=== PATIENT | male | born 1945 | race African-American/Black ===

== ENCOUNTER 2017-01-09 09:30 | Outpatient (CLI) | payer MEDICARE, OTHER ==
[2017-01-09 10:26] LABS: ALT (SGPT) 40 U/L (0-55); AST (SGOT) 33 U/L (5-34); Albumin 3.9 g/dL (3.4-4.8); Alkaline Phosphatase 175 U/L (40-150); Anion Gap 15 mmol/L (10-20); BUN (Urea Nitrogen) 27 mg/dL (8.4-25.7); Bilirubin, Total 0.4 mg/dL (0.2-1.2); Calc. Creatinine Clearance 0 mL/min (70-130); Calcium 10.1 mg/dL (7.8-10.44); Carbon Dioxide 24 mmol/L (23-31); Chloride 105 mmol/L (98-107); Estimated GFR-MDRD 52; Globulin 3.9 g/dL (2.4-3.5); Glucose 92 mg/dL (83-110); Potassium 4.2 mmol/L (3.5-5.1); Protein, Total 7.8 g/dL (5.8-8.1); Sodium 140 mmol/L (136-145)
[2017-01-09 11:07] LABS: Band 2 % (5-11); Eosinophils 4 % (0-10); Hemoglobin 15.4 g/dL (14.0-18.0); Lymphocytes 22 % (21-51); MDiff Complete? YES; Mean Corpuscular HGB CONC 33.4 g/dL (32.0-36.0); Mean Corpuscular Hemoglobin 29.1 pg (27.0-31.0); Mean Corpuscular Volume 87.1 fL (80.0-94.0); Mean Platelet Volume 6.9 fL (7.4-10.4); Monocytes 13 % (0-10); Neutrophil 58 % (42-75); Platelet Count 308 thou/uL (130-400); RBC Distribution Width 11.9 % (11.5-14.5); Red Blood Cell (RBC) Count 5.31 mill/uL (4.70-6.10); White Blood Cell (WBC) Count 6.1 thou/uL (4.8-10.8)
[2017-01-09 11:08] LABS: PLT Morphology Comment Appears Adequate; RBC Morphology Normal
--- NOTE | 2017-01-09 11:21 | RAD ---
LUMBAR SPINE SERIES THREE VIEWS: History: Back pain for one month. FINDINGS: The vertebral bodies are normal in height. There is fairly pronounced disc narrowing at L5-S1. Mil d disc narrowing at L4-5. Degenerative facet changes are present. Pedicles are intact. No spondyl olisthesis. IMPRESSION: 1. Moderate arthritic changes of the lower lumbar spine. 2. Atherosclerosis. POS: OFF
--- NOTE | 2017-01-09 11:22 | RAD ---
TWO VIEW RIGHT HIP: Indication: Pain. FINDINGS: No fracture or dislocation. There is mild osteoarthritis. IMPRESSION: No acute fracture. POS: [facility]
--- NOTE | 2017-01-09 11:22 | RAD ---
LEFT HIP TWO VIEWS: History: Pain for one month. FINDINGS: The joint space is well preserved. There are no signs of any arthritic change. Femoral head mainta ins a normal spherical shape. IMPRESSION: Essentially unremarkable left hip. POS: OFF
== END 2017-01-09 09:31 | disposition home or self-care (01) ==
LOC: MADLABBHPM 09:30
PROVIDERS: ATTEND Family Medicine
DX: R00.2 Palpitations (principal); R07.9 Chest pain, unspecified; M25.559 Pain in unspecified hip; M54.9 Dorsalgia, unspecified; I10 Essential (primary) hypertension
CPT/HCPCS: 36415; 72100; 80053; 84443; 85007; 85027; 85652; 93005; 93010

== ENCOUNTER 2017-03-01 10:10 | Inpatient (IN) | payer MEDICARE, OTHER ==
[2017-03-01 10:55] VITALS: BMI 22.1
[2017-03-01] MEDS ORDERED: Acetaminophen 325 MG TAB PO PRN (14:03)
[2017-03-01] MEDS ORDERED: Ondansetron ODT 4 MG TAB PO PRN (14:03)
[2017-03-01] MEDS ORDERED: HYDROcodone/Acetaminophen 10/325 mg Tablet PO PRN ×2 (14:06)
[2017-03-01] MEDS ORDERED: Mag-Al Plus 1200 MG/1200 MG/120 MG/30 ML UDCUP PO PRN (14:07)
[2017-03-01] MEDS: Docusate 100 MG CAP PO SCH (20:30)
[2017-03-01] MEDS: Acetaminophen/Codeine 30-300mg Tablet PO SCH (20:31)
--- NOTE | 2017-03-02 01:27 | HP ---
DATE OF ADMISSION: 03/01/2017 ADMITTING PHYSICIAN: Sabino Torres M.D. PRIMARY CARE PHYSICIAN: Sabino Torres M.D. REASON FOR ADMISSION: For skilled rehabilitation at [facility] swing bed, status post laminectomy to L4-L5 and T10-T11. HISTORY OF PRESENT ILLNESS: Mr. Lagos is a 73-year-old male with a past medical history of hypertension who presented to his primary care physician due to lower back pain and severely worsening gait dysfunction. The patient had MRIs done which showed L spine L4-L5 severe stenosis and severe stenosis to T10-T11. The patient was seen by neurosurgeon, Dr. Spencer, and he subsequently was admitted for laminectomy due to the worsening of his gait. The patient had a surgery performed on 02/26/2017 and the procedure did go well. Status post surgery, the patient progressively improved and was subsequently transferred to [facility] in [place] to continue his skilled rehabilitation prior to discharge back to his home. When I saw the patient today, he was happy to be in facility, denied any nausea , vomiting, chest pain, or constipation. He states he has not had a bowel movement since surgery, but he has been passing gas. He denies any abdominal pain, no fevers. He complains of mild back pain, but states pain is controlled with current pain medication. PAST MEDICAL HISTORY: Hypertension and CKD, stage 3. PAST SURGICAL HISTORY: Cholecystectomy. ALLERGIES: No known drug allergies. CODE STATUS: FULL CODE. SOCIAL HISTORY: He denies any tobacco use, alcohol use, or illicit drug use. The patient lives in his home in [place] by himself. MEDICATIONS: The patient takes lisinopril/hydrochlorothiazide 20/25 and clonidine 0.1 daily. REVIEW OF SYSTEMS: General: The patient denies any fevers or chills. The patient denies any nausea, vomiting. HEENT: No vision changes, no hearing, no dysphagia. Chest: No chest pain, shortness of breath, palpitation, or dizziness. Respiratory: Denies any cough, shortness of breath or wheezing. Abdomen: Denies any abdominal pain, constipation, or nausea. States he has not had a bowel movement in 3 days. Genitourinary: Denies dysuria, hematuria. Skin: Denies any easy bruising. Musculoskeletal: Complains of some soreness to his back and gait instability. Neurologic: Denies memory loss, hallucination or delusions. PHYSICAL EXAMINATION: VITAL SIGNS: Temperature 97.2, pulse 73, respirations 18, O2 on room air 96%, and blood pressure 129/68. GENERAL APPEARANCE: Alert, awake, oriented x3, healthy appearing male, pleasant, and in no apparent distress, lying comfortably in bed. HEENT: Normocephalic, atraumatic. PERRL. Nonicteric sclerae. Oral mucous membranes moist. NECK: Supple. No JVD. CHEST: Clear to auscultation bilaterally. CARDIAC: S1, S2, no murmurs, rubs, or gallops. No JVD, no carotid bruit. ABDOMEN: Positive bowel sounds, soft, nontender, nondistended. BACK: Mid thoracic area with 2 incision sites clean, clear, dry and intact dressing. No signs of erythema or infection. NEUROLOGIC: Gait is slow. Cranial nerves grossly intact. Sensation grossly intact. ASSESSMENT: 1. Status post laminectomy. 2. Lumbar laminectomy L4-L5, thoracic laminectomy T10-T11. 3. Hypertension. 4. Gait instability. 5. Chronic kidney disease, stage 3. 6. Constipation. PLAN: The patient is being admitted to [facility] swing bed for rehabilitation and gait strengthening. We will consult physical therapy for strengthening in order to gain modified independence with gait and occupational therapy to help with activities of daily living prior to returning to his home. We will change dressings daily and the patient to follow up with neurosurgeon in 2 weeks. We will resume home medications. We will monitor blood pressure closely. We will manage pain with Tylenol No. 3 and [place] as needed. For constipation we will place the patient on Colace b.i.d. and p.r.n. stool softeners. We will monitor the patient closely and any medical comorbidities that may interfere with his rehabilitation process. We will place the patient on GI and DVT prophylaxis with Protonix and compression stockings. EXTENDED LENGTH OF STAY: 2-3 weeks. DISPOSITION: Home. CODE STATUS: FULL CODE. MTDD
[2017-03-02] MEDS: Acetaminophen/Codeine 30-300mg Tablet PO SCH ×2 (08:56→20:35)
[2017-03-02] MEDS: cloNIDine HCl 0.1 MG TAB PO SCH (08:58)
[2017-03-02] MEDS: Hydrochlorothiazide 25 MG TAB PO SCH (08:59)
[2017-03-02] MEDS: Lisinopril 10 MG TAB PO SCH (08:59)
[2017-03-02] MEDS: Docusate 100 MG CAP PO SCH ×2 (08:59→20:36)
[2017-03-03] MEDS: Lisinopril 10 MG TAB PO SCH (07:54)
[2017-03-03] MEDS: Hydrochlorothiazide 25 MG TAB PO SCH (07:54)
[2017-03-03] MEDS: Acetaminophen/Codeine 30-300mg Tablet PO SCH ×2 (07:55→20:53)
[2017-03-03] MEDS: Docusate 100 MG CAP PO SCH ×2 (07:55→20:53)
[2017-03-03] MEDS: cloNIDine HCl 0.1 MG TAB PO SCH (07:57)
[2017-03-04] MEDS: Acetaminophen/Codeine 30-300mg Tablet PO SCH ×2 (09:38→20:23)
[2017-03-04] MEDS: Lisinopril 10 MG TAB PO SCH (09:40)
[2017-03-04] MEDS: cloNIDine HCl 0.1 MG TAB PO SCH (09:40)
[2017-03-04] MEDS: Hydrochlorothiazide 25 MG TAB PO SCH (09:40)
[2017-03-04] MEDS: Docusate 100 MG CAP PO SCH ×2 (09:40→20:23)
[2017-03-05] MEDS: Acetaminophen/Codeine 30-300mg Tablet PO SCH ×2 (09:16→20:14)
[2017-03-05] MEDS: Docusate 100 MG CAP PO SCH ×2 (09:17→20:15)
[2017-03-05] MEDS: Lisinopril 10 MG TAB PO SCH (09:17)
[2017-03-05] MEDS: Hydrochlorothiazide 25 MG TAB PO SCH (09:17)
[2017-03-05] MEDS: cloNIDine HCl 0.1 MG TAB PO SCH (09:17)
[2017-03-06] MEDS: Acetaminophen/Codeine 30-300mg Tablet PO SCH ×2 (07:10→21:11)
[2017-03-06] MEDS: Docusate 100 MG CAP PO SCH ×2 (08:11→21:11)
[2017-03-06] MEDS: Hydrochlorothiazide 25 MG TAB PO SCH (08:11)
[2017-03-06] MEDS: cloNIDine HCl 0.1 MG TAB PO SCH (08:11)
[2017-03-06] MEDS: Lisinopril 10 MG TAB PO SCH (08:11)
[2017-03-07 07:59] VITALS: BP 130/70; TEMP 96.5
[2017-03-07] MEDS: Lisinopril 10 MG TAB PO SCH (08:43)
[2017-03-07] MEDS: Acetaminophen/Codeine 30-300mg Tablet PO SCH (08:44)
[2017-03-07] MEDS: Docusate 100 MG CAP PO SCH (08:44)
[2017-03-07] MEDS: cloNIDine HCl 0.1 MG TAB PO SCH (08:45)
[2017-03-07] MEDS: Hydrochlorothiazide 25 MG TAB PO SCH (08:45)
--- NOTE | 2017-03-07 10:43 | DIS ---
DATE OF ADMISSION: 03/01/2017 DATE OF DISCHARGE: 03/07/2017 PRIMARY CARE PHYSICIAN AND ADMITTING PHYSICIAN: Sabino Torres M.D. FINAL DIAGNOSES: 1. Gait instability. 2. Status post Lumbar laminectomy L4-L5, thoracic laminectomy T10-T11 3. Hypertension. 4. Chronic kidney disease stage 3. DISCHARGE MEDICATIONS: Lisinopril and hydrochlorothiazide 20/25, clonidine 0.1 daily, Tylenol #3 b.i.d. p.r.n. pain #30 given. DISCHARGE INSTRUCTIONS: Follow up with PCP in 2 weeks. Follow up with neurosurgeon, Dr. Spencer in 1 week. Physical Therapy and Occupational Therapy Services were ordered via [facility]. Heart healthy diet. Fall precautions. Ambulate with walker as needed. BRIEF HOSPITAL COURSE: Mr. Lagos is a 73-year-old -[place] male with a past medical history of hypertension who is now status post laminectomy to L4- L5 and T10-T11 and due to worsening back pain and severely worsening gait dysfunction. Patient subsequently had an elective successful laminectomy done on 02/26/2017. He was transferred to [facility] in [place] for Physical Therapy. Patient has progressively improved with therapy and he recommended that he could do therapy with home health services at home. The patient during hospitalization was stable, progressively improved and did not have any fall episodes and pain was controlled with Tylenol #3 as needed. The patient subsequently discharged back to his home in a stable condition to continue Physical Therapy and Occupational Therapy with [facility]. CODE STATUS: The patient is a FULL CODE. DISCHARGE VITAL SIGNS: Temperature 96.5, pulse 75, respirations 20, O2 96% on room air, and blood pressure 130/70. MTDD
== END 2017-03-07 11:45 | disposition home health service (06) | DRG 93 ==
LOC: MADMS 10:10
PROVIDERS: ADMIT Family Medicine; ATTEND Family Medicine
DX: R26.89 Other abnormalities of gait and mobility (principal); N18.3 Chronic kidney disease, stage 3 (moderate); I12.9 Hypertensive chronic kidney disease with stage 1 through stage 4 chronic kidney disease, or unspecified chronic kidney disease; K59.00 Constipation, unspecified; Z98.890 Other specified postprocedural states
CPT/HCPCS: G8978-GP-CJ; G8979-GP-CI